=== PATIENT | male | born 1970 | race Caucasian/White ===

== ENCOUNTER 2016-10-15 10:02 | Emergency (ER) | payer SELFPAY ==
[~2016-10-15 10:02] MED LIST: FLAGYL500 MG PO; LEVAQUIN750 MG PO; MAALOX DPS30 ML PO; PAXIL10 MG PO; SURFAK DPS240 MG PO; TYLENOL #3 DPS1 TAB PO; TYLENOL325 MG PO; ZOFRAN ODT8 MG PO
--- NOTE | 2016-10-22 17:50 | ER ---
ADMIT: 10/15/2016 RM/LOC: ER [facility] MR#: [id number] [address] [id number] ASAD GIANG [address] [place] [id number] Emergency Room Report SEX: M AGE: 46 : 1970 DATE: 10/15/2016 ADDENDUM: This patient comes to the ER because he is having severe abdominal pain, it started at 6:30 a.m. He has a history of having pancreatitis and he thinks that is what is going on. On physical exam, he is very distressed, most of his pain seems in the epigastric area. He is hyperventilating, IV of normal saline was started. He was given Ativan, Zofran, Protonix, and morphine. When I went to re-evaluate him, all his pain was gone and he was calm. DIAGNOSIS: Abdominal pain. PLAN: We will have him follow up with his primary as needed. His CBC, CMP were normal. ALESSIO Claire / Tani Garsia MD / jose franciscol JOB #: [id number] CC: Tani Garsia MD, Attending Physician Kristy Pitt MD, Family Physician
== END 2016-10-15 12:40 | disposition home or self-care (01) ==
LOC: ER 10:02
DX: R10.84 Generalized abdominal pain (principal); F32.9 Major depressive disorder, single episode, unspecified; F17.210 Nicotine dependence, cigarettes, uncomplicated